=== PATIENT | male | born 1995 | race Caucasian/White ===

== ENCOUNTER → 2021-08-17 | Emergency (ER) | payer BC ==
[~2021-08-17] VITALS: Ht 190.5 cm; Wt 79.4 kg
[~2021-08-17] MED LIST: ACET-2605 PO; ACETAMINOPHEN ES 500 MG TABLET ONE; ACETAMINOPHEN ES 500 MG TABLET PO ONE; BACI30OI9 TP; IV NS 0.9% 1,000 ML BAG IV ONE; POTASSIUM CHLORIDE 20 MEQ TAB.PRT.SR PO ONE
--- NOTE | 2021-08-17 15:18 | NUR ---
BIB [facility] 78 BYSTANDER WITNESSED SEIZURE EPISODE WHILE IN A GOLF COURSE, PT HAS A LACERATION ON R SIDE OF HIS HEAD. PT STATED HE HAS NO HISTORY OF SIEZURES. VITALS WITHIN NORMAL LIMITS. BREATHING EVEN AND UNLABORED. PT ATTCHED TO MONITOR. SIEZURE PRECAUTIONS WERE TAKEN.
--- NOTE | 2021-08-17 15:26 | NUR ---
PT BIB [facility] 78,WITNESSED SEIZURE EPISODE WHILE IN A GOLF COURSE,LACERATION TO RIGHT PARIETAL AREA. PT A/OX4. TOLERATING R/A WELL WITH NO SOB. SAFETY SEIZURE PRECAUTIONS IN PLACE. CONNECTED PT TO POX AND MONITOR.
--- NOTE | 2021-08-17 15:46 | NUR ---
ERIC #22G S/L. BLOOD COLLECTED AND SENT TO LAB
--- NOTE | 2021-08-17 15:51 | NUR ---
DOCTOR OF PODIATRIC MEDICINE AT PT'S BEDSIDE
[2021-08-17 16:10] LABS: BASOPHILS # (AUTO) 0.1 K/uL (0.0-0.2); BASOPHILS % (AUTO) 1.2 % (0.0-2.0); EOSINOPHILS % (AUTO) 1.1 % (0.0-6.0); HEMATOCRIT 46 % (39-51); HEMOGLOBIN 15.5 g/dL (13.5-17.5); LYMPHOCYTES # (AUTO) 2.9 K/uL (0.8-4.8); LYMPHOCYTES % (AUTO) 37.9 % (20.0-44.0); MEAN CORPUSCULAR HGB CONC 34 g/dl (31.0-36.0); MEAN CORPUSCULAR VOLUME 83 fL (80-96); MONOCYTES # (AUTO) 0.5 K/uL (0.1-1.30); MONOCYTES % (AUTO) 6.5 % (2.0-12.0); NEUTROPHILS # (AUTO) 4.1 K/uL (1.8-8.9); NEUTROPHILS % (AUTO) 53.3 % (43.0-81.0); PLATELET COUNT (AUTO) 342 K/uL (150-450); RED BLOOD CELL COUNT(AUTO) 5.52 MIL/uL (4.5-6.0); WHITE BLOOD COUNT (AUTO) 7.8 K/uL (4.3-11.0)
[2021-08-17 16:58] LABS: ALANINE AMINOTRANSFERASE 220 U/L (12-78); ALBUMIN 4.4 g/dL (3.4-5.0); ALKALINE PHOSPHATASE 95 U/L (46-116); ASPARTATE AMINOTRANSFERASE 115 U/L (15-37); BILIRUBIN,DIRECT 0.1 mg/dL (0.0-0.2); BILIRUBIN,TOTAL 0.6 mg/dL (0.2-1.0); CALCIUM, SERUM 9.3 mg/dL (8.5-10.1); CARBON DIOXIDE 24 mmol/L (21-32); CHLORIDE 105 mmol/L (98-107); CREATININE 1.3 mg/dL (0.6-1.3); GLUCOSE 105 mg/dL (74-106); POTASSIUM 3.2 mmol/L (3.5-5.1); SODIUM SERUM 144 mmol/L (136-145); TOTAL PROTEIN, SERUM 7.7 g/dL (6.4-8.2); UREA NITROGEN, BLOOD 15 mg/dL (7-18)
[2021-08-17 17:00] LABS: ALCOHOL, BLOOD < 3 mg/dL (0-0)
[2021-08-17 17:05] LABS: MAGNESIUM 2.5 mg/dL (1.8-2.4)
[2021-08-17 17:16] LABS: THYROID STIMULATING HORMONE 4.279 uIU/mL (0.358-3.74)
--- NOTE | 2021-08-17 19:33 | NUR ---
URINE COLLECTED AND SENT TO LAB
--- NOTE | 2021-08-17 20:15 | NUR ---
DISCHARGED PT, PAPER WORK GIVEN TO PT. PT LEFT IN STABLE CONDITION.
[2021-08-17 20:26] VITALS: BP 113/60
== END | disposition home or self-care (01) ==
LOC: ER 15:20
DX: S00.81XA Abrasion of other part of head, initial encounter (principal); S60.511A Abrasion of right hand, initial encounter; R56.9 Unspecified convulsions; Z91.048 Other nonmedicinal substance allergy status; Z79.899 Other long term (current) drug therapy; W18.39XA Other fall on same level, initial encounter; Y93.53 Activity, golf; Y92.89 Other specified places as the place of occurrence of the external cause; Y99.8 Other external cause status
CPT/HCPCS: 36415; 70450; 71045; 73130; 80048; 80076; 80307; 80320; 82962; 83735; 84439; 84443; 84481; 85025; 93005; 96360; 99285; A6403; J7030; G0480